=== PATIENT | female | born 1995 | race Hispanic/Latino ===

== ENCOUNTER 2025-04-20 03:17 | Emergency (ER) | payer SELFPAY ==
[~2025-04-20] VITALS: Ht 144.8 cm; Wt 73.5 kg
[2025-04-20 04:01] VITALS: PULSE 93; RESP 18; TEMP 98.7
[2025-04-20] MEDS ORDERED: CEPHALEXIN500 MG PO (04:20)
[2025-04-20] MEDS ORDERED: KETOROLAC TROMETHAMINE 60 MG/2 ML VIAL ONE (04:25)
[2025-04-20] MEDS: KETOROLAC TROMETHAMINE 60 MG/2 ML VIAL IM ONE (04:30)
[2025-04-20 04:37] VITALS: BP 117/73; PULSE 93; RESP 18; TEMP 98.7; O2SAT 97
== END 2025-04-20 04:37 | disposition home or self-care (01) ==
LOC: FSED 04:06
DX: N64.4 Mastodynia (principal); N61.0 Mastitis without abscess
CPT/HCPCS: 81025; 96372; 99282; J1885